=== PATIENT | female | born 1930 | race Two or more races ===

== ENCOUNTER 2018-07-11 10:02 | Outpatient (CLI) | payer MEDICARE, OTHER ==
[2018-07-11 11:40] LABS: BASOPHILS % (AUTO) 0.4 % (0.0-2.0); EOSINOPHILS % (AUTO) 1.3 % (0.0-6.0); HEMATOCRIT 44 % (33-45); HEMOGLOBIN 14.7 g/dL (11.5-14.8); LYMPHOCYTES # (AUTO) 1.4 /CMM (0.8-4.8); LYMPHOCYTES % (AUTO) 22.5 % (20.0-44.0); MEAN CORPUSCULAR HGB CONC 34 g/dl (31.0-36.0); MEAN CORPUSCULAR VOLUME 94 fL (82-100); MONOCYTES # (AUTO) 0.4 /CMM (0.1-1.30); MONOCYTES % (AUTO) 6.3 % (2.0-12.0); NEUTROPHILS # (AUTO) 4.4 /CMM (1.8-8.9); NEUTROPHILS % (AUTO) 69.5 % (43.0-81.0); PLATELET COUNT (AUTO) 216 /CMM (150-450); RED BLOOD CELL COUNT(AUTO) 4.65 MIL/uL (4.0-5.2); WHITE BLOOD COUNT (AUTO) 6.4 K/uL (4.3-11.0)
[2018-07-11 11:47] LABS: CALCIUM, SERUM 9.2 mg/dL (8.5-10.1); CARBON DIOXIDE 29 mmol/L (21-32); CHLORIDE 105 mmol/L (98-107); CREATININE 0.7 mg/dL (0.6-1.3); GLUCOSE 91 mg/dL (74-106); POTASSIUM 3.9 mmol/L (3.5-5.1); SODIUM SERUM 141 mmol/L (136-145); UREA NITROGEN, BLOOD 15 mg/dL (7-18)
== END 2018-07-11 23:59 | disposition home or self-care (01) ==
LOC: US 10:02
PROVIDERS: ATTEND Internal Medicine Pulmonary Disease
DX: J94.8 Other specified pleural conditions (principal)
CPT/HCPCS: 36415; 71046; 76942-TC; 80048-TC; 82945-TC; 84155-TC; 85025-TC; 85610-TC; 85730-TC; 87070-TC; 87102-TC; 87116; 87206; 89051-TC

== ENCOUNTER 2018-07-13 10:12 | Outpatient (CLI) | payer MEDICARE, OTHER | END 2018-07-13 23:59 | disposition home or self-care (01) | LOC: RAD 10:12 | PROVIDERS: ATTEND Internal Medicine Pulmonary Disease | DX: J90 Pleural effusion, not elsewhere classified (principal) | CPT/HCPCS: 71046 ==

== ENCOUNTER 2018-07-20 10:27 | Outpatient (CLI) | payer MEDICARE, OTHER | END 2018-07-20 23:59 | disposition home or self-care (01) | LOC: RAD 10:27 | PROVIDERS: ATTEND Internal Medicine Pulmonary Disease | DX: J90 Pleural effusion, not elsewhere classified (principal); J93.83 Other pneumothorax | CPT/HCPCS: 71046 ==

== ENCOUNTER 2019-01-09 11:58 | Outpatient (CLI) | payer MEDICARE, MEDICAID | END 2019-01-09 23:59 | disposition home or self-care (01) | LOC: RAD 11:58 | PROVIDERS: ATTEND Internal Medicine Pulmonary Disease | DX: J90 Pleural effusion, not elsewhere classified (principal); I70.0 Atherosclerosis of aorta; J98.11 Atelectasis | CPT/HCPCS: 71046 ==